=== PATIENT | female | born 1965 | race African-American/Black ===

== ENCOUNTER 2018-05-18 04:49 | Day surgery (SDC) | payer OTHER ==
[2018-05-17 12:43] VITALS: BMI 32.9
[~2018-05-18 04:49] MED LIST: BUPIVACAINE HCL/PF (5 MG/ML) 30 ML VIAL IJ ONE; DEXAMETHASONE SOD PHOSPHATE 4 MG/1 ML VIAL NR ONE
[2018-05-18] MEDS ORDERED: BUPIVACAINE HCL/PF 0.5% (5MG/ML) 10 ML VIAL ONE (07:13)
[2018-05-18] MEDS ORDERED: BENZOIN TINCTURE SWABSTICK TP ONE (07:13)
[2018-05-18] MEDS ORDERED: LIDOCAINE HCL 1%, 10 MG/ML (20ML VIAL) ONE ×2 (07:13)
[2018-05-18] MEDS ORDERED: DEXAMETHASONE SOD PHOSPHATE 4 MG/1 ML VIAL ONE (07:13)
[2018-05-18] MEDS ORDERED: ceFAZolin SODIUM 1 GM VIAL ONE (07:43)
[2018-05-18] MEDS ORDERED: LIDOCAINE HCL/PF 2% SDV 5ML VIAL ONE (07:43)
[2018-05-18] MEDS ORDERED: MIDAZOLAM HCL 2 MG/2 ML SINGLE DOSE VIAL ONE ×2 (07:43→07:53)
[2018-05-18] MEDS ORDERED: PROPOFOL 20 ML ONE ×2 (07:43)
[2018-05-18] MEDS ORDERED: ceFAZolin SODIUM 1 GM VIAL IVPB ONE (07:45)
[2018-05-18] MEDS ORDERED: LIDO 2%/EPI 1:200000 PRESRVFRE (20 ML SDVIAL) PNB ONE (07:46)
[2018-05-18] MEDS ORDERED: BUPIVACAINE HCL/PF (5 MG/ML) 30 ML VIAL IJ ONE (07:46)
[2018-05-18] MEDS ORDERED: KETOROLAC TROMETHAMINE 30 MG/1 ML VIAL ONE ×2 (07:57→08:25)
[2018-05-18] MEDS ORDERED: BACITRACIN 50,000 UNITS VIAL TP ONE (08:15)
--- NOTE | 2018-05-18 09:36 | OP ---
DATE OF OPERATION: 05/18/2018 SURGEON: Sabina Gomez DPM MILIEU MANAGER: Dorian Ledesma DPM, and Dr. Giselle Johnson, PGY3 PREOPERATIVE DIAGNOSIS: Right foot fourth and fifth hammertoes. POSTOPERATIVE DIAGNOSIS: Right foot fourth and fifth hammertoes. PROCEDURE: Arthroplasty of the fourth and fifth digits, right foot. ANESTHESIA: Local with MAC. HEMOSTASIS: Right ankle tourniquet at 250 mmHg. DESCRIPTION OF PROCEDURE: The patient was brought to the operating room and placed on the operating table in the supine position. After adequate IV sedation was obtained, a local infiltrative block was then administered utilizing a 1:1 mixture of lidocaine plain and 0.5% Marcaine plain. A total of 10 mL was used. The right foot was then scrubbed, prepped, and draped in the usual aseptic fashion. Upon exsanguination of the right foot with an Esmarch bandage and placement of padding at the ankle, the pneumatic ankle tourniquet was inflated at 250 mmHg. Surgery began in the following manner. Attention was first directed to the dorsal aspect of the fourth digit of the right foot at the proximal interphalangeal joint where 2 converging semi-elliptical incisions were made over the dorsal aspect of the proximal interphalangeal joint. The semi-elliptical incision was then was then removed from the operative field, and the incision was then deepened through the subcutaneous tissue, with care being taken to identify and retract all vital neural and vascular structures. At this time the extensor tendon noted to be partially severed at the level of proximal interphalangeal joint. Using No. 15-blade, a transverse tenotomy and capsulotomy were performed to the proximal interphalangeal joint of the fourth digit, right foot. The head of the proximal phalanx was then freed from its capsular and ligamentous attachments. The head was noted to be hypertrophied on dorsal and lateral aspects. Utilizing an oscillating bone saw, the head of the proximal phalanx was then resected and passed from the operative field and sent to pathology. At this time the deformity was noted to be reduced, and the 4th digit laid in a more corrected position. Next, attention was brought to the dorsal aspect of the 5th digit, right foot, where 2 converging semi-elliptical incisions were made over the dorsal aspect of the proximal interphalangeal joint in an angular fashion. The semi-elliptical incision was then removed from the operative was then removed from the operative field and sent to pathology. The incision was then deepened through to subcutaneous tissue, with care being taken to identify and retract all vital and neural structures. At this time the transverse tenotomy and capsulotomy were done at the proximal interphalangeal joint, and the head of the proximal phalanx was freed from its ligamentous attachments. The head of the proximal phalanx appeared to be prominent on medial and lateral aspect. Using oscillating sagittal saw, the head of the proximal phalanx was resected and passed from the operative field and sent to pathology. At this time the deformity was noted to be reduced and the fifth digit laid in a more corrected position. Both the fourth and fifth digit wounds were then flushed with copious amount of normal saline. The extensor tendons were sutured and reapproximated using 4-0 Vicryl suture, and the skin was closed using 4-0 nylon suture in a single suture fashion. Upon completion of the procedure, 10 mL of 8:2 mixture of 0.5% Marcaine plain and dexamethasone 4 mg was injected throughout the surgical site. The incisions were then dressed with Betadine-soaked Adaptic, 4 x 4 sterile gauze, Kerlix, and Ulices bandage. The pneumatic ankle tourniquet was then deflated at this time and prompt hyperemic response was noted to all the digits of the right foot. The patient tolerated the procedure and anesthesia well and was transferred to the postanesthesia care unit with vital signs stable and vascular status intact to the right lower extremity. dictating for JEFFERSON Bains DPM [id number]
[2018-05-18] MEDS ORDERED: ONDANSETRON 4 MG/2 ML VIAL IVPUSH ONE (09:55)
[2018-05-18 12:39] VITALS: BP 132/70; PULSE 70; TEMP 97.8
--- NOTE | 2018-05-21 16:16 | PATH ---
Surgical Pathology Report Patient Name: HEATHER JACOB [facility]. Rec. #: [id number] /Age/Gender: 1965 (Age: 52) / F Account: [id number] Location: [facility] SURGICAL Taken: 05/18/2018 Received: 05/18/2018 Reported: 05/21/2018 Physicians: Sabina Gomez DPM Specimen(s) Received BONE AND SKIN RIGHT FOOT Clinical History Right foot hammer toe, fourth and fifth toes Final Diagnosis BONE AND SKIN RIGHT FOOT, 4TH AND 5TH TOES, EXCISION: FRAGMENTS OF BONE WITH FOCAL DEGENERATIVE CHANGE. SEPARATE SEGMENTS OF SKIN WITH NO DIAGNOSTIC ABNORMALITIES Electronically Signed Helen Esparza M.D. Gross Description Received in formalin labeled "bone and skin right fourth and fifth toes," are 2 maddox-yellow portions of bone measuring 9.0 x 0.5 x 0.3 cm and 1.1 x 0.6 x 0.4 cm. Also received within the same container are 2 maddox skin shaves measuring 1.0 x 0.4 cm and 1.8 x 0.7 cm. Engineering Faculty Member sections are submitted in one cassette, following decalcification. /05/18/201805/18/2018
== END 2018-05-18 12:41 | disposition home or self-care (01) ==
LOC: JASU-SURG 04:49
PROVIDERS: ATTEND Podiatrist Foot Surgery
PROC: 0SRP0JZ Replacement of Right Toe Phalangeal Joint with Synthetic Substitute, Open Approach (ICD-10-PCS; principal; 2018-05-18 07:30)
DX: M20.41 Other hammer toe(s) (acquired), right foot (principal); E11.9 Type 2 diabetes mellitus without complications; Z79.84 Long term (current) use of oral hypoglycemic drugs
CPT/HCPCS: 73630-TC-RT-FY; 82962; 84703; 88304-TC; 88311-TC; 97116-GP

== ENCOUNTER 2020-05-23 20:26 | Emergency (ER) | payer OTHER ==
[2020-05-23 21:07] VITALS: TEMP 98.6; BMI 31.6
[2020-05-23 22:52] LABS: BASO % 2.1 % (0-2.0); EOS % 1.3 % (0-4.5); HEMATOCRIT 38.4 % (32.4-45.2); HEMOGLOBIN 12.9 GM/dL (10.7-15.3); LYMPH % 39.5 % (8-40); MCH 28.3 pg (25.7-33.7); MCHC 33.7 g/dl (32.0-36.0); MEAN CELL VOLUME 83.9 fl (80-96); MEAN PLT VOLUME 6.8 fl (7.5-11.1); MONO % 8.6 % (3.8-10.2); NEUT % 48.5 % (42.8-82.8); PLATELET COUNT 258 K/MM3 (134-434); RBC 4.58 M/mm3 (3.60-5.2); RDW 13.4 % (11.6-15.6); WHITE BLOOD COUNT 4.9 K/mm3 (4.0-10.0)
[2020-05-23 22:59] LABS: CHLORIDE 109 mmol/L (98-107); POTASSIUM 3.3 mmol/L (3.5-5.1); SODIUM 140 mmol/L (136-145)
[2020-05-23 23:01] LABS: ALBUMIN 3.9 g/dl (3.4-5.0); ANION GAP 5 MMOL/L (8-16); BLOOD UREA NITROGEN 17.6 mg/dL (7-18); CALCIUM 9.8 mg/dL (8.5-10.1); CO2 26 mmol/L (21-32); GLUCOSE,RANDOM 130 mg/dL (74-106)
[2020-05-23 23:04] LABS: CREATININE 0.8 mg/dL (0.55-1.3)
[2020-05-23 23:06] LABS: BILIRUBIN,TOTAL 0.3 mg/dL (0.2-1); SGOT/AST 11 U/L (15-37); SGPT/ALT 15 U/L (13-61); TOT PROT 7.9 g/dl (6.4-8.2)
[2020-05-23 23:07] LABS: ALK PHOS 75 U/L (45-117)
[2020-05-23] MEDS ORDERED: POTASSIUM CHLORIDE TABS 20 MEQ TABLET.ER (FP) PO ONE ×2 (23:30→23:59)
[2020-05-23 23:55] VITALS: BP 131/85; PULSE 67
== END 2020-05-24 00:15 | disposition home or self-care (01) ==
LOC: JER 20:26
DX: R07.9 Chest pain, unspecified (principal); I10 Essential (primary) hypertension
CPT/HCPCS: 36415; 71046-TC-FY; 80053; 82550; 84484; 85025; 93005; 93010; 99285-25